=== PATIENT | female | born 2000 | race African-American/Black ===

== ENCOUNTER 2024-02-11 03:23 | Emergency (ER) | payer OTHER, MEDICAID ==
[~2024-02-11] VITALS: Ht 165.1 cm; Wt 75.0 kg
[2024-02-11 03:30] VITALS: PULSE 69; O2SAT 100
[2024-02-11 03:35] VITALS: BP 120/75; RESP 16; TEMP 98; O2SAT 100
[2024-02-11 04:15] LABS: HEMATOCRIT. 34.1 % (36.0-48.0); HEMOGLOBIN. 11.3 g/dL (12.0-16.0); MEAN CORPUSCULAR HEMOGLOBIN 27.8 pg (28.0-32.0); MEAN CORPUSCULAR VOLUME 84.2 fL (81.0-99.0); MEAN PLATELET VOLUME 10.9 fl (7.4-10.4); PLATELET 116 x1000/uL (130-400); RED BLOOD CELL COUNT 4.05 mill/uL (4.2-5.4); RED CELL DISTRIBUTION WIDTH 15.7 % (11.6-14.6); WHITE BLOOD COUNT 12.8 x1000/uL (4.5-11.0)
[2024-02-11 04:23] LABS: CHLORIDE 107 mEq/L (98-107); POTASSIUM 3.5 mEq/L (3.5-5.1); SODIUM 141 mEq/L (136-145)
[2024-02-11 04:24] LABS: CALCIUM 9.4 mg/dL (8.7-10.4); CARBON DIOXIDE 24 mEq/L (21-32)
[2024-02-11 04:29] LABS: CREATININE 0.7 mg/dL (0.6-1.0); GLUCOSE 155 mg/dL (70-105); UREA NITROGEN BLOOD 5 mg/dL (9-23)
[2024-02-11 04:35] LABS: DIFFERENTIAL COMMENT 1; HCG SCREEN POSITIVE
[2024-02-11 07:43] LABS: PLATELET ESTIMATE SLIGHTLY DECREASED
== END 2024-02-11 07:01 | disposition left against medical advice (07) ==
LOC: ER 03:56
DX: O26.891 Other specified pregnancy related conditions, first trimester (principal); R10.30 Lower abdominal pain, unspecified; Z53.21 Procedure and treatment not carried out due to patient leaving prior to being seen by health care provider; Z3A.00 Weeks of gestation of pregnancy not specified
CPT/HCPCS: 36415; 76801; 80048; 84703; 85025; 86850; 86900

== ENCOUNTER 2024-05-30 16:35 | Emergency (ER) | payer OTHER ==
[~2024-05-30] VITALS: Ht 165.1 cm; Wt 81.0 kg
[2024-05-30 16:42] VITALS: O2SAT 100
[2024-05-30 18:18] LABS: BASOPHILS % 0.4 % (0.0-2.0); DIFFERENTIAL COMMENT 0; EOSINOPHILS % 0.7 % (0.0-5.0); HEMATOCRIT. 38.3 % (36.0-48.0); HEMOGLOBIN. 12.7 g/dL (12.0-16.0); LYMPHOCYTES % 18.3 % (20.0-50.0); MEAN CORPUSCULAR HEMOGLOBIN 25.9 pg (28.0-32.0); MEAN CORPUSCULAR HGB CONC 33.3 g/dL (31.0-37.0); MEAN CORPUSCULAR VOLUME 77.8 fL (81.0-99.0); MEAN PLATELET VOLUME 10.4 fl (7.4-10.4); MONOCYTES % 5.4 % (2.0-8.0); NEUTROPHILS % 75.2 % (40.0-76.0); PLATELET 128 x1000/uL (130-400); RED BLOOD CELL COUNT 4.92 mill/uL (4.2-5.4); RED CELL DISTRIBUTION WIDTH 16.6 % (11.6-14.6)
[2024-05-30 18:25] LABS: CHLORIDE 106 mEq/L (98-107); POTASSIUM 3.2 mEq/L (3.5-5.1); SODIUM 137 mEq/L (136-145)
[2024-05-30 18:26] LABS: CALCIUM 9.4 mg/dL (8.7-10.4); CARBON DIOXIDE 19 mEq/L (21-32)
[2024-05-30 18:31] LABS: CREATININE 0.7 mg/dL (0.6-1.0); GLUCOSE 109 mg/dL (70-105); UREA NITROGEN BLOOD 6 mg/dL (9-23)
[2024-05-30 18:33] LABS: ALANINE AMINOTRANSFERASE < 7 IU/L (10-49); ALBUMIN 4.4 g/dL (3.2-4.8); ASPARTATE AMINOTRANSFERASE 12 IU/L (<34); BILIRUBIN TOTAL 0.7 mg/dL (0.1-1.0); PROTEIN TOTAL 7.4 g/dL (6.0-8.3)
[2024-05-30 18:44] LABS: B-HCG QUANTITATIVE 66573 mIU/mL (<3)
[2024-05-30] MEDS ORDERED: POTASSIUM CHLORIDE 20MEQ/PACKET PO ONE (18:45)
[2024-05-30 20:21] LABS: CLARITY URINE CLEAR (CLEAR); COLOR URINE YELLOW (YELLOW); GLUCOSE URINE NEGATIVE (NEGATIVE); KETONES URINE NEGATIVE (NEGATIVE); LEUKOCYTE ESTERASE URINE NEGATIVE (NEGATIVE); NITRITE URINE NEGATIVE (NEGATIVE); OCCULT BLOOD URINE 1+ (NEGATIVE); PH URINE 5.5 (4.5-8.0); PROTEIN URINE TRACE (NEGATIVE); SPECIFIC GRAVITY URINE 1.023 (1.005-1.030)
[2024-05-30 20:36] LABS: BACTERIA URINE TRACE; SQUAMOUS EPITHELIAL CELL URINE 2+ /lpf (RARE/1+); WBC URINE 0-2 /hpf (0-2)
[2024-05-30] MEDS ORDERED: CEPH500C2 MT (20:38)
[2024-05-30] MEDS: POTASSIUM CHLORIDE 20MEQ/PACKET PO NR (21:08)
[2024-05-30 22:21] VITALS: BP 118/63; PULSE 77; RESP 17; TEMP 36.66960; O2SAT 100
== END 2024-05-30 22:23 | disposition home or self-care (01) ==
LOC: ER 16:35
DX: O20.0 Threatened abortion (principal); R82.71 Bacteriuria; Z3A.11 11 weeks gestation of pregnancy
CPT/HCPCS: 36415; 76801; 80053; 81003; 81025; 84702; 85025; 86850; 86900; 99284